=== PATIENT | male | born 1950 | race African-American/Black ===

== ENCOUNTER 2016-12-23 16:33 | Emergency (ER) | payer MEDICARE, OTHER ==
[~2016-12-23] VITALS: Ht 182.9 cm; Wt 104.0 kg
[~2016-12-23 16:33] MED LIST: BACT800T5 PO; HYDR-3533 PO; IBUP-232 PO; INSU-118; INSU-174; LOSA25TA31 PO; NOVO7030P2 SQ; NOVOLOGSS SQ
[2016-12-23 16:39] VITALS: BP 149/88; PULSE 72; RESP 16; TEMP 99.1; O2SAT 98
[2016-12-23] MEDS ORDERED: NOVO7030P2 SQ ×2 (17:40→18:25)
[2016-12-23] MEDS ORDERED: LOSA25TA PO ×2 (17:40→18:23)
--- NOTE | 2016-12-23 18:30 | PD ---
HPI Chief Complaint: Medication Refill Request Time Seen by Provider: 18:23 Travel History International Travel<30 days: No Contact w/Intl Traveler<30days: No Traveled to known affect area: No History of Present Illness HPI 66-year-old male presents to the emergency room requesting medication refills of losartan and insulin. Patient has been out of his losartan for one week and ran out of his insulin this morning. He reports occasional headache that happened when his blood pressure gets too high. He has been in the process of trying to find a primary care physician but states he is having a difficult time getting in because of availability. Patient is usually compliant with medication. PFSH Past Medical History Autoimmune Disease: No Cardiovascular Problems: Yes (HTN) COPD: Yes Diabetes: Yes Patient Takes Glucophage: No Diminished Hearing: No Endocrine: No Gastrointestinal Disorders: Yes Genitourinary: No Hypertension: Yes Immune Disorder: No Implanted Vascular Access Dvce: No Musculoskeletal: No Neurologic: No Psychiatric: No Reproductive: No Respiratory: Yes (BRONCHITIS ) Tetanus Vaccination: > 5 Years Influenza Vaccination: No Past Surgical History Surgical History: No Previous Surgery Hysterectomy: Yes (HTN) Other Surgery: No Social History Alcohol Use: No Tobacco Use: No Substance Use: No Allergies-Medications (Allergen,Severity, Reaction): Coded Allergies: Penicillin (Verified Allergy, Severe, RASH, 12/23/16) Reported Meds & Prescriptions Reported Meds & Active Scripts Active Novolin 70-30 Inj (Insulin Human Isoph/Insulin Regular) 1,000 Unit/10 Ml Vial 14 Units SQ BID 30 Days Losartan (Losartan Potassium) 25 Mg Tab 25 Mg PO DAILY Reported Losartan (Losartan Potassium) 25 Mg Tab 25 Mg PO DAILY Review of Systems Except as stated in HPI: all other systems reviewed are Neg Physical Exam Narrative GENERAL: Well-nourished, well-developed male in no acute distress. Afebrile. Ambulatory. SKIN: Warm and dry. HEAD: Normocephalic. EYES: No scleral icterus. No injection or drainage. ET: Mucosa pink and moist. No erythema or exudates. No uvular edema. No uvular, palatal, or tonsillar deviation. Airway patent. NECK: Supple, trachea midline. No JVD or lymphadenopathy. CARDIOVASCULAR: Regular rate and rhythm without murmurs, gallops, or rubs. RESPIRATORY: Breath sounds equal bilaterally. No accessory muscle use. Data Data Last Documented VS Vital Signs Date Time Temp Pulse Resp B/P Pulse Ox O2 Delivery O2 Flow Rate FiO2 12/23/16 16:39 99.1 72 16 149/88 98 MDM Medical Decision Making Medical Screen Exam Complete: Yes Emergency Medical Condition: Yes Medical Record Reviewed: Yes Differential Diagnosis Medication refill versus diabetes versus hypertension Narrative Course 66-year-old male presents to the emergency room requesting location as well as of his losartan and insulin. Ran out of losartan last week and out of insulin this morning. Patient has been compliant with medications otherwise. He has been looking for her primary care physician but been unable to find one who will accept his insurance. Denies headache, chest pain, or shortness of breath. States he has been well since taking insulin. He will be given courtesy refill is losartan and Novolin. Patient strongly encouraged to follow up with a primary care physician or return for emergent/urgent conditions. He understands and agrees to plan. Diagnosis Primary Impression: Medication refill Referrals: Primary Care Physician Patient Instructions: General Instructions, Medication Refill, ED Additional Instructions: Rest and drink plenty of fluids. Take insulin as directed. Take losartan as directed. Follow-up with a primary care physician for further management of chronic conditions. Return to the emergency room for worsening symptoms. Med/Other Pt SpecificInfo: Prescription(s) given Scripts Insulin Human Isophane-Regular 70-30 Inj (Novolin 70-30 Inj)1,000 Unit/10 Ml Vial14 Units SQ BID 30 Days Ref 0 Prov:Michele Andrade MD 12/23/16 Losartan 25 Mg Tab25 Mg PO DAILY #30 TAB Ref 0 Prov:Michele Andrade MD 12/23/16 Disposition: 01 DISCHARGE HOME Condition: Stable Tori Moser Dec 23, 2016 18:29
== END 2016-12-23 18:38 | disposition home or self-care (01) ==
LOC: PHED 16:33 → PHEFT 18:38
DX: I10 Essential (primary) hypertension (principal); E11.9 Type 2 diabetes mellitus without complications; Z79.4 Long term (current) use of insulin; Z76.0 Encounter for issue of repeat prescription
CPT/HCPCS: 99281

== ENCOUNTER 2017-02-26 18:44 | Emergency (ER) | payer MEDICARE, OTHER ==
[~2017-02-26] VITALS: Ht 182.9 cm; Wt 106.8 kg
[~2017-02-26 18:44] MED LIST changes: -BACT800T5 PO; -HYDR-3533 PO; -IBUP-232 PO; -INSU-118; -INSU-174; +LOSA25TA PO; -LOSA25TA31 PO; -NOVOLOGSS SQ
[2017-02-26 18:50] VITALS: BP 163/88; PULSE 71; RESP 18; TEMP 99; O2SAT 98
[2017-02-26] MEDS ORDERED: NOVORP2 SQ ×2 (19:09→20:37)
[2017-02-26] MEDS ORDERED: SODIUM CHLORIDE 0.9% FLUSH 10 ML FLUSH IV FLUSH PRN (19:15)
--- NOTE | 2017-02-26 19:32 | PD ---
HPI . Lower abdominal pain Chief Complaint: Abdominal Pain Time Seen by Provider: 19:02 Travel History International Travel<30 days: No Contact w/Intl Traveler<30days: No Traveled to known affect area: No History of Present Illness HPI Patient presents with lower abdominal pain which started this morning. He states that it started after breakfast. He describes an aching suprapubic pain. He reports the pain is exacerbated by urination and has been improved following a bowel movement. He states that his bowel movement earlier today was just pellets. He denies fever. He denies dysuria, frequency or urgency. He has not had any nausea or vomiting. [id number]: Lower abdomen QUALITY: Aching SEVERITY: Mild DURATION: About 12 hours TIMING: Continuous MODIFYING FACTORS: Exacerbated by urination. Relieved by bowel movement ASSOCIATED SYMPTOMS: No associated symptoms PFSH Past Medical History Autoimmune Disease: No Cardiovascular Problems: Yes (HTN) COPD: Yes Diabetes: Yes Patient Takes Glucophage: No Diminished Hearing: No Endocrine: No Gastrointestinal Disorders: Yes Genitourinary: No Hypertension: Yes Immune Disorder: No Implanted Vascular Access Dvce: No Musculoskeletal: No Neurologic: No Psychiatric: No Reproductive: No Respiratory: Yes (BRONCHITIS ) Immunizations Current: Yes Tetanus Vaccination: Unknown Influenza Vaccination: No Past Surgical History Hysterectomy: Yes (HTN) Other Surgery: No Social History Alcohol Use: No Tobacco Use: No Substance Use: No Allergies-Medications (Allergen,Severity, Reaction): Coded Allergies: Penicillin (Verified Allergy, Severe, RASH, 02/26/17) Reported Meds & Prescriptions Reported Meds & Active Scripts Active Losartan (Losartan Potassium) 25 Mg Tab 25 Mg PO DAILY Novolin R Inj (Insulin Human Regular) 1,000 Unit/10 Ml Vial 1-9 Units SQ ACHS Max dose at bedtime:( )units; sugars less than 70,(0) units; sugars 150-199,(1)unit; sugars 200-249,(3)units; sugars 250-299,(5) units; sugars 300-349,(7)units; sugars greater than 349,(9)units Novolin 70-30 Inj (Insulin Human Isoph/Insulin Regular) 1,000 Unit/10 Ml Vial 14 Units SQ BID 30 Days Review of Systems Except as stated in HPI: all other systems reviewed are Neg General / Constitutional: No: Fever, Chills Cardiovascular: No: Chest Pain or Discomfort Respiratory: No: Cough, Shortness of Breath Gastrointestinal: Positive: Abdominal Pain, Constipation, No: Nausea, Vomiting , Diarrhea Genitourinary: No: Urgency, Frequency, Dysuria Physical Exam Narrative GENERAL: Healthy-appearing man in no distress. SKIN: Warm and dry. HEAD: Atraumatic. Normocephalic. EYES: Pupils equal and round. ENT: No nasal bleeding or discharge. Mucous membranes pink and moist. NECK: Trachea midline. Neck is supple. CARDIOVASCULAR: Regular rate and rhythm. Heart sounds are normal. RESPIRATORY: No accessory muscle use. Lungs are clear with full air movement throughout. GASTROINTESTINAL: Abdomen soft, non-tender, nondistended. Bowel sounds positive. MUSCULOSKELETAL: No obvious deformities. No edema. NEUROLOGICAL: Awake and alert. No obvious cranial nerve deficits. Motor grossly within normal limits. Normal speech. PSYCHIATRIC: Appropriate mood and affect; insight and judgment normal. Data Data Last Documented VS Vital Signs Date Time Temp Pulse Resp B/P Pulse Ox O2 Delivery O2 Flow Rate FiO2 02/26/17 20:22 66 18 167/75 99 Room Air 02/26/17 18:50 99.0 Orders Complete Blood Count With Diff (02/26/17 19:02) Comprehensive Metabolic Panel (02/26/17 19:02) Urinalysis - C+S If Indicated (02/26/17 19:02) Abdomen, Flat & Upright (02/26/17 ) Iv Access Insert/Monitor (02/26/17 19:02) Sodium Chloride 0.9% Flush (Ns Flush) (02/26/17 19:15) Electrocardiogram (02/26/17 19:02) Chest, Single Ap (02/26/17 19:02) Labs Laboratory Tests Test 02/26/17 19:40 White Blood Count 8.9 TH/MM3 Red Blood Count 4.29 MIL/MM3 Hemoglobin 10.2 GM/DL Hematocrit 31.5 % Mean Corpuscular Volume 73.5 FL Mean Corpuscular Hemoglobin 23.8 PG Mean Corpuscular Hemoglobin 32.4 % Concent Red Cell Distribution Width 15.1 % Platelet Count 195 TH/MM3 Mean Platelet Volume 8.0 FL Neutrophils (%) (Auto) 70.9 % Lymphocytes (%) (Auto) 21.3 % Monocytes (%) (Auto) 6.2 % Eosinophils (%) (Auto) 1.4 % Basophils (%) (Auto) 0.2 % Neutrophils # (Auto) 6.3 TH/MM3 Lymphocytes # (Auto) 1.9 TH/MM3 Monocytes # (Auto) 0.6 TH/MM3 Eosinophils # (Auto) 0.1 TH/MM3 Basophils # (Auto) 0.0 TH/MM3 CBC Comment AUTO DIFF Differential Comment AUTO DIFF CONFIRMED Platelet Estimate NORMAL Platelet Morphology Comment NORMAL Urine Color YELLOW Urine Turbidity CLEAR Urine pH 5.5 Urine Specific [place] 1.010 Urine Protein NEG mg/dL Urine Glucose (UA) NEG mg/dL Urine Ketones NEG mg/dL Urine Occult Blood TRACE Urine Nitrite NEG Urine Bilirubin NEG Urine Leukocyte Esterase NEG Urine RBC 4-9 /hpf Urine WBC 0-2 /hpf Urine Squamous Epithelial 0-5 /hpf Cells Urine Mucus OCC /lpf Microscopic Urinalysis Comment CULT NOT INDICATED Sodium Level 145 MEQ/L Potassium Level 3.8 MEQ/L Chloride Level 110 MEQ/L Carbon Dioxide Level 25.6 MEQ/L Anion Gap 9 MEQ/L Blood Urea Nitrogen 18 MG/DL Creatinine 1.60 MG/DL Estimat Glomerular Filtration 53 ML/MIN Rate Random Glucose 89 MG/DL Calcium Level 8.3 MG/DL Total Bilirubin 0.3 MG/DL Aspartate Amino Transf 15 U/L (AST/SGOT) Alanine Aminotransferase 25 U/L (ALT/SGPT) Alkaline Phosphatase 83 U/L Total Protein 7.1 GM/DL Albumin 3.4 GM/DL [facility] Medical Decision Making Medical Screen Exam Complete: Yes Emergency Medical Condition: Yes Interpretation(s) EKG shows a sinus rhythm with no ST segment elevation or depression. Differential Diagnosis Differential diagnosis of abdominal pain includes but is not limited to gastritis, pancreatitis, hepatitis, gastroenteritis, gallbladder disease, constipation, urinary retention, UTI, peptic ulcer disease, diverticulitis or appendicitis Narrative Course Patient presents complaining with lower abdominal pain. CBC & BMP Diagram 02/26/17 19:40 LFTs are normal. UA is negative. This chest and abdominal x-rays have been independently viewed by me. Diagnosis Primary Impression: Abdominal pain Qualified Code: R10.30 - Lower abdominal pain Additional Impression: Constipation Qualified Code: K59.00 - Constipation, unspecified constipation type Patient Instructions: Constipation (DC), General Instructions Scripts Losartan 25 Mg Tab25 Mg PO DAILY #30 TAB Ref 0 Prov:Yeimi Reyes MD 02/26/17 Insulin Human Regular Inj (Novolin R Inj)1,000 Unit/10 Ml Vial1-9 Units SQ ACHS #10 ML Ref 0 Max dose at bedtime:( )units; sugars less than 70,(0) units; sugars 150-199,(1)unit; sugars 200-249,(3)units; sugars 250-299,(5) units; sugars 300-349,(7)units; sugars greater than 349,(9)units Prov:Yeimi Reyes MD 02/26/17 Insulin Human Isophane-Regular 70-30 Inj (Novolin 70-30 Inj)1,000 Unit/10 Ml Vial14 Units SQ BID 30 Days Ref 0 Prov:Yeimi Reyes MD 02/26/17 Disposition: 01 DISCHARGE HOME Condition: Stable Yeimi Reyes MD Feb 26, 2017 19:32
[2017-02-26 19:58] LABS: AUTOMATED NEUTROPHIL # 6.3 TH/MM3 (1.8-7.7); BASOPHIL % 0.2 % (0.0-2.0); EOSINOPHIL # 0.1 TH/MM3 (0-0.4); EOSINOPHIL % 1.4 % (0.0-4.0); HEMATOCRIT 31.5 % (39.0-51.0); LYMPH % 21.3 % (9.0-44.0); LYMPHOCYTE # 1.9 TH/MM3 (1.0-4.8); MEAN CELL VOLUME 73.5 FL (80.0-100.0); MEAN CORPUSCULAR HEMOGLOBIN 23.8 PG (27.0-34.0); MEAN CORPUSCULAR HGB CONC 32.4 % (32.0-36.0); MONO % 6.2 % (0.0-8.0); NEUT % 70.9 % (16.0-70.0); PLATELET COUNT 195 TH/MM3 (150-450); RED BLOOD COUNT 4.29 MIL/MM3 (4.50-5.90); RED CELL DISTRIBUTION WIDTH 15.1 % (11.6-17.2); WHITE BLOOD COUNT 8.9 TH/MM3 (4.0-11.0)
[2017-02-26 19:59] LABS: CHLORIDE 110 MEQ/L (98-107); POTASSIUM 3.8 MEQ/L (3.5-5.1); SODIUM (NA) 145 MEQ/L (136-145)
[2017-02-26 20:00] LABS: BLOOD, URINE TRACE (NEG); GLUCOSE,URINE NEG (NEG); KETONE, URINE NEG (NEG); NITRITE,URINE NEG (NEG); PH, URINE 5.5 (5.0-8.5)
[2017-02-26 20:02] LABS: ANION GAP 9 MEQ/L (5-15); BICARBONATE 25.6 MEQ/L (21.0-32.0); HEMO FLAGS AUTO DIFF
[2017-02-26 20:03] LABS: BLOOD UREA NITROGEN 18 MG/DL (7-18)
[2017-02-26 20:05] LABS: ALT (GPT) 25 U/L (12-78); AST (GOT) 15 U/L (15-37)
[2017-02-26 20:06] LABS: GLOMERULAR FILTRATION RATE 53 ML/MIN (>89)
[2017-02-26 20:07] LABS: TOTAL BILIRUBIN ADULT 0.3 MG/DL (0.2-1.0)
[2017-02-26 20:08] LABS: ALKALINE PHOSPHATASE 83 U/L (45-117)
[2017-02-26 20:11] LABS: URINE COLOR YELLOW (YELLW/STRAW)
[2017-02-26 20:12] LABS: COMMENT (UR) CULT NOT INDICATED; CULTURE IF INDICATED CULT NOT INDICATED; MUCUS URINE OCC /lpf (OCC); SQUAMOUS EPITHELIAL CELL URINE 0-5 /hpf (0-5); WBC, URINE 0-2 /hpf (0-5)
[2017-02-26 20:22] VITALS: BP 167/75; PULSE 66; RESP 18; O2SAT 99
[2017-02-26 20:28] LABS: PLATELET ESTIMATE SMEAR NORMAL (NORMAL); PLATELET MORPHOLOGY NORMAL (NORMAL); SCAN/DIFF AUTO DIFF CONFIRMED
[2017-02-26] MEDS ORDERED: LOSA25TA PO (20:37)
[2017-02-26] MEDS ORDERED: NOVO7030P2 SQ (20:37)
--- NOTE | 2017-02-26 21:16 | RADHPO ---
EXAM DATE/TIME: 02/26/2017 20:01 [facility] COMPARISON: CHEST SINGLE AP, September 13, 2016, 6:29. INDICATIONS : Chest pain. MEDICAL HISTORY : Hypertension. Diabetes mellitus type II. SURGICAL HISTORY : None. ENCOUNTER: Initial ACUITY: 1 day PAIN SCORE: 4/10 LOCATION: Bilateral chest FINDINGS: A single view of the chest demonstrates the lungs to be symmetrically aerated without evidence of mas s, infiltrate or effusion. The cardiomediastinal contours are unremarkable except mildly tortuous ao rta. Osseous structures are intact. CONCLUSION: 1. No acute findings. Chepe Mae MD on February 26, 2017 at 21:14 Board Certified Radiologist. This report was verified electronically.
--- NOTE | 2017-02-26 21:17 | RADHPO ---
EXAM DATE/TIME: 02/26/2017 20:05 [facility] COMPARISON: No previous studies available for comparison. INDICATIONS : Abdomen pain. MEDICAL HISTORY : Hypertension. Diabetes mellitus type II. SURGICAL HISTORY : None. ENCOUNTER: Initial ACUITY: 1 day PAIN SCORE: 5/10 LOCATION: Bilateral Abdomen FINDINGS: Supine and upright views of the abdomen were performed. Bowel gas pattern is nonspecific without evid ence for obstruction or free air. No acute bony abnormality. CONCLUSION: 1. No acute findings. Chepe Mae MD on February 26, 2017 at 21:14 Board Certified Radiologist. This report was verified electronically.
[2017-02-26 21:37] VITALS: BP 176/84
--- NOTE | 2017-02-27 10:36 | EKG ---
Date Performed: 02/26/2017 Time Performed: 19:40:44 PTAGE: 66 years EKG: Sinus rhythm . Normal ECG PREVIOUS TRACING : 09/13/2016 06.37 DOCTOR: Darius Grey Interpretating Date/Time 02/27/2017 10:33:42
== END 2017-02-26 21:38 | disposition home or self-care (01) ==
LOC: PHED 18:44
DX: R10.30 Lower abdominal pain, unspecified (principal); K59.00 Constipation, unspecified; E11.9 Type 2 diabetes mellitus without complications; I10 Essential (primary) hypertension; Z79.4 Long term (current) use of insulin; Z87.19 Personal history of other diseases of the digestive system; Z86.79 Personal history of other diseases of the circulatory system; Z87.09 Personal history of other diseases of the respiratory system
CPT/HCPCS: 71010; 74020; 80053; 81001; 85025; 93005

== ENCOUNTER 2017-05-09 16:24 | Emergency (ER) | payer MEDICARE, OTHER ==
[~2017-05-09] VITALS: Ht 180.3 cm; Wt 107.0 kg
[~2017-05-09 16:24] MED LIST changes: +NOVORP2 SQ
[2017-05-09 16:29] VITALS: BP 144/77; PULSE 76; RESP 16; TEMP 98.4; O2SAT 98
[2017-05-09] MEDS ORDERED: NOVO7030P2 SQ (17:16)
[2017-05-09] MEDS ORDERED: CEPH-459 PO (17:26)
--- NOTE | 2017-05-09 17:27 | PD ---
HPI Chief Complaint: Injury Time Seen by Provider: 16:50 Travel History International Travel<30 days: No Contact w/Intl Traveler<30days: No Traveled to known affect area: No History of Present Illness HPI 66-year-old male presents to emergency department for evaluation of puncture wound to right third digit by a metal wire underneath his nail today. He reports mild tenderness of the digit. He reports no possibility of foreign body as the entire wire remained intact per patient. He reports he presented for evaluation of the wound because he is a diabetic and concerned that it would get infected. He also is requesting refill of his Novolin 70/30 insulin which he takes 14 units subcutaneous twice daily. He reports he's been on this dose of medication for greater than 1 year. He has recently had insurance change and unable to find a doctor who accepts his insurance. His last refill for insulin was given here in the emergency department. He reports he checks his sugars daily. He seems knowledgeable about his condition. He reports he used the last of his insulin this morning. [facility] Past Medical History Narrative Medical Diabetes type 2, hypertension Hx Anticoagulant Therapy: No Autoimmune Disease: No Cardiovascular Problems: Yes (HTN) COPD: Yes Diabetes: Yes Patient Takes Glucophage: No Diminished Hearing: No Endocrine: No Gastrointestinal Disorders: Yes Genitourinary: No Hypertension: Yes Immune Disorder: No Implanted Vascular Access Dvce: No Musculoskeletal: No Neurologic: No Psychiatric: No Reproductive: No Respiratory: Yes (BRONCHITIS ) Immunizations Current: Yes Tetanus Vaccination: > 5 Years Influenza Vaccination: No Past Surgical History Surgical History: No Previous Surgery Hysterectomy: Yes (HTN) Other Surgery: No Social History Alcohol Use: No Tobacco Use: No Substance Use: No Allergies-Medications (Allergen,Severity, Reaction): Coded Allergies: Penicillin (Verified Allergy, Severe, RASH, 05/09/17) Reported Meds & Prescriptions Reported Meds & Active Scripts Active Keflex (Cephalexin) 250 Mg Cap 250 Mg PO Q6H Novolin 70-30 Inj (Insulin Human Isoph/Insulin Regular) 1,000 Unit/10 Ml Vial 14 Units SQ BID 30 Days Losartan (Losartan Potassium) 25 Mg Tab 25 Mg PO DAILY Review of Systems Except as stated in HPI: all other systems reviewed are Neg Physical Exam Narrative GENERAL: Alert, well-appearing male SKIN: Focused skin assessment warm/dry. HEAD: Atraumatic. Normocephalic. EYES: Pupils equal and round. No scleral icterus. No injection or drainage. ENT: No nasal bleeding or discharge. Mucous membranes pink and moist. NECK: Trachea midline. No JVD. CARDIOVASCULAR: Regular rate and rhythm. No murmur appreciated. RESPIRATORY: No accessory muscle use. Clear to auscultation. Breath sounds equal bilaterally. GASTROINTESTINAL: Abdomen soft, non-tender, nondistended. Hepatic and splenic margins not palpable. MUSCULOSKELETAL: No obvious deformities. No clubbing. No cyanosis. No edema. Right third digit: Evidence of puncture wound underneath nail bed. No foreign body seen on inspection. Small amount of blood in a linear vertical line at the site of the puncture wound under the nail bed. No subungual hematoma. NEUROLOGICAL: Awake and alert. No obvious cranial nerve deficits. Motor grossly within normal limits. Normal speech. PSYCHIATRIC: Appropriate mood and affect; insight and judgment normal. Data Data Last Documented VS Vital Signs Date Time Temp Pulse Resp B/P Pulse Ox O2 Delivery O2 Flow Rate FiO2 05/09/17 16:29 98.4 76 16 144/77 98 MDM Medical Decision Making Medical Screen Exam Complete: Yes Emergency Medical Condition: Yes Medical Record Reviewed: Yes Differential Diagnosis Puncture wound, medication refill Narrative Course 66-year-old male with history of type 2 diabetes presents emergency department for evaluation of puncture wound in the left third digit earlier today. Patient is also requesting refill of his insulin. Patient reports he takes Novolin 70/30 14 units subcutaneous twice a day. He reports he's been on this dose for greater than 1 year but has recently unable to find a doctor that takes his insurance. Patient reports he checks his sugars several times per day. According to the EMR patient was last seen here approximately 2 months ago and at that time was given a refill of his insulin. Patient is well informed of his condition his insulin will be refilled at this visit. He was given instructions for follow-up at the [facility]. Diagnosis Primary Impression: Puncture wound Additional Impression: Medication refill Referrals: [facility] Additional Instructions: Take medications as prescribed. Check your blood sugars as he normally do. Make an appointment for follow-up with the [facility] or other primary care doctor for management of your diabetes. Return to the emergency department if he develops increasing pain, swelling, redness or drainage from the site. Scripts Cephalexin (Keflex)250 Mg Euo930 Mg PO Q6H #28 CAP Prov:Mariel Reyes 05/09/17 Insulin Human Isophane-Regular 70-30 Inj (Novolin 70-30 Inj)1,000 Unit/10 Ml Vial14 Units SQ BID 30 Days Ref 0 Prov:Mariel Reyes 05/09/17 Disposition: 01 DISCHARGE HOME Condition: Stable Mariel Reyes May 09, 2017 17:27
[2017-05-09] MEDS ORDERED: TETANUS/DIPHTHERIA TOXOID ADULT 0.5 ML VIAL IM ONE (18:15)
== END 2017-05-09 18:23 | disposition home or self-care (01) ==
LOC: PHEFT 16:24
DX: S61.232A Puncture wound without foreign body of right middle finger without damage to nail, initial encounter (principal); W26.8XXA Contact with other sharp object(s), not elsewhere classified, initial encounter; Z23 Encounter for immunization
CPT/HCPCS: 90471; 90714

== ENCOUNTER 2017-07-26 15:46 | Emergency (ER) | payer MEDICARE, OTHER ==
[~2017-07-26] VITALS: Ht 182.9 cm; Wt 108.0 kg
[~2017-07-26 15:46] MED LIST changes: +CEPH-459 PO; -NOVORP2 SQ
[2017-07-26 15:59] VITALS: BP 166/78; PULSE 97; RESP 16; TEMP 99.8; O2SAT 97
--- NOTE | 2017-07-26 16:38 | PD ---
HPI Chief Complaint: Cold / Flu Symptoms Time Seen by Provider: 16:21 Travel History International Travel<30 days: No Contact w/Intl Traveler<30days: No Traveled to known affect area: No History of Present Illness HPI 66-year-old male with history of COPD presents to the emergency room for evaluation of chills, congestion, cough, sore throat, headache, and pleuritic chest pain for the past 2 days. States symptoms started off with sore throat and congestion and a half progressed into his chest. Cough is nonproductive. He has been taking [id number] Advil Cold and Flu without significant relief in symptoms. He has not actually taken his temperature. Patient has had the pneumonia vaccination but not the flu vaccination. Only history of hypertension and diabetes. Patient smoked 15 years ago but has not since. He lives in a house with smokers. PFSH Past Medical History Hx Anticoagulant Therapy: No Autoimmune Disease: No Cardiovascular Problems: Yes (HTN) COPD: Yes Diabetes: Yes Patient Takes Glucophage: No Diminished Hearing: No Endocrine: No Gastrointestinal Disorders: Yes Genitourinary: No Hypertension: Yes Immune Disorder: No Implanted Vascular Access Dvce: No Musculoskeletal: No Neurologic: No Psychiatric: No Reproductive: No Respiratory: Yes (BRONCHITIS ) Immunizations Current: Yes Tetanus Vaccination: < 5 Years Influenza Vaccination: No Past Surgical History Surgical History: No Previous Surgery Hysterectomy: Yes (HTN) Other Surgery: No Social History Alcohol Use: No Tobacco Use: No Substance Use: No Allergies-Medications (Allergen,Severity, Reaction): Coded Allergies: penicillin G (Unverified Allergy, Severe, Hives, 07/26/17) Reported Meds & Prescriptions Reported Meds & Active Scripts Active Ventolin Hfa 18 GM Inh (Albuterol Sulfate) 90 Mcg/Act Aer 2 Puff INH Q6H PRN Tessalon Perles (Benzonatate) 100 Mg Cap 100 Mg PO TID PRN Azithromycin 250 Mg Tab 250 Mg PO DIRECTED Take 2 tabs (500 mg) on day 1 then 1 tab daily x 4 days. Novolin 70-30 Inj (Insulin Human Isoph/Insulin Regular) 1,000 Unit/10 Ml Vial 14 Units SQ BID 30 Days Losartan (Losartan Potassium) 25 Mg Tab 25 Mg PO DAILY Review of Systems Except as stated in HPI: all other systems reviewed are Neg Physical Exam Narrative GENERAL: Well-nourished, well-developed patient. SKIN: Focused skin assessment warm/dry. HEAD: Normocephalic. EYES: No scleral icterus. No injection or drainage. ENT: Mucosa pink and moist. Mild erythema without edema or exudates. No uvular edema. No uvular, palatal, or tonsillar deviation. Airway patent. Nasal turbinates appear normal without nasal blood, purulent drainage or septal hematoma. EARS: Bilateral pinnae and external canals appear within normal limits. Bilateral tympanic membranes without erythema, dullness or perforation. NECK: Supple, trachea midline. No JVD or lymphadenopathy. CARDIOVASCULAR: Regular rate and rhythm without murmurs, gallops, or rubs. RESPIRATORY: Breath sounds equal bilaterally. No accessory muscle use. Bilateral wheezing and rhonchi. No obvious crackles. Data Data Last Documented VS Vital Signs Date Time Temp Pulse Resp B/P (MAP) Pulse Ox O2 Delivery O2 Flow Rate FiO2 07/26/17 16:15 16 97 Room Air 07/26/17 15:59 99.8 97 166/78 (107) Orders Orders Chest, Pa & Lat (07/26/17 ) Influenzae A/B Antigen (07/26/17 16:27) MDM Medical Decision Making Medical Screen Exam Complete: Yes Emergency Medical Condition: Yes Medical Record Reviewed: Yes Differential Diagnosis Upper respiratory infection, pneumonia, bronchitis Narrative Course 66-year-old male presents to the emergency room for evaluation of cough and flu symptoms for the past 2 days. Patient is afebrile and well-appearing in the emergency room. Coughing on occasion. Cough is nonproductive. Lungs sounds revealed bilateral wheezing and rhonchi, right worse than left. There is mild nasal congestion. Throat is mildly erythematous. Rapid influenza is negative. Chest x-ray shows no acute abnormality. This is likely bronchitis. Patient discharged with prescriptions for azithromycin, albuterol inhaler, and Tessalon Perles. Follow up with his primary care physician or return to the emergency room for worsening symptoms. He understands and agrees to plan. Diagnosis Primary Impression: Acute bronchitis Qualified Codes: J20.9 - Acute bronchitis, unspecified Referrals: Primary Care Physician Additional Instructions: Rest and drink plenty of fluids. Take azithromycin as directed, until gone. Use albuterol inhaler as directed, as needed for wheezing. Return to the emergency room in 2 days to have packing removed. If it falls out before, this is okay. Follow up with a primary care physician. Return to emergency room for worsening symptoms, as discussed. Med/Other Pt SpecificInfo: Prescription(s) given Scripts Albuterol 18 GM Inh (Ventolin Hfa 18 GM Inh) 90 Mcg/Act Aer 2 PUFF INH Q6H Y for SHORTNESS OF BREATH, #1 INHALER 0 Refills Prov: Yeimi Reyes MD 07/26/17 Benzonatate (Tessalon Perles) 100 Mg Cap 100 MG PO TID Y for COUGH, #15 CAP 0 Refills Prov: Yeimi Reyes MD 07/26/17 Azithromycin (Azithromycin) 250 Mg Tab 250 MG PO DIRECTED for Infection, #6 TAB 0 Refills Take 2 tabs (500 mg) on day 1 then 1 tab daily x 4 days. Prov: Yeimi Reyes MD 07/26/17 Disposition: 01 DISCHARGE HOME Condition: Stable Tori Moser Jul 26, 2017 16:38
--- NOTE | 2017-07-26 16:55 | RADRPT ---
EXAM DATE/TIME: 07/26/2017 16:31 [facility] COMPARISON: CHEST PA & LAT, September 13, 2015, 8:16. INDICATIONS : Productive cough and congestion. MEDICAL HISTORY : Chronic obstructive pulmonary disease. Hypertension Diabetes mellitus type II. SURGICAL HISTORY : None. ENCOUNTER: Initial ACUITY: 3 days PAIN SCORE: 2/10 LOCATION: Bilateral chest FINDINGS: PA and lateral views of the chest demonstrate the lungs to be symmetrically aerated without evidence of mass, infiltrate or effusion. The cardiomediastinal contours are unremarkable. Osseous structure s are intact. CONCLUSION: No acute disease. Donald Kimble MD FACR on July 26, 2017 at 16:53 Board Certified Radiologist. This report was verified electronically.
[2017-07-26] MEDS ORDERED: BENZ100 PO (17:02)
[2017-07-26] MEDS ORDERED: AZIT250T3 PO (17:02)
[2017-07-26] MEDS ORDERED: VENTAER INH (17:02)
== END 2017-07-26 17:29 | disposition home or self-care (01) ==
LOC: PHEFT 15:46
DX: J20.9 Acute bronchitis, unspecified (principal); E11.9 Type 2 diabetes mellitus without complications; I10 Essential (primary) hypertension; J44.0 Chronic obstructive pulmonary disease with (acute) lower respiratory infection; Z88.0 Allergy status to penicillin
CPT/HCPCS: 71020; 87804; 99284

== ENCOUNTER 2017-08-02 23:06 | Emergency (ER) | payer MEDICARE, OTHER ==
[~2017-08-02] VITALS: Ht 182.9 cm; Wt 106.5 kg
[~2017-08-02 23:06] MED LIST changes: +AZIT250T3 PO; +BENZ100 PO; -CEPH-459 PO; +VENTAER INH
[2017-08-02 23:20] VITALS: BP 193/90; PULSE 80; RESP 18; TEMP 98.9; O2SAT 98
--- NOTE | 2017-08-02 23:34 | PD ---
HPI Chief Complaint: Respiratory Symptoms Time Seen by Provider: 23:24 Travel History International Travel<30 days: No Contact w/Intl Traveler<30days: No History of Present Illness HPI Patient 66-year-old male presents emergency department for evaluation of cough congestion for the past 10 days. Patient states he was here a week ago and diagnosed bronchitis and then ran out of his Tessalon and then the symptoms return. He is a nonsmoker but his is fairly heavy smoker. Denies any fever denies any sputum production, states he feels something rattling around his chest. Review the records show that indeed he was here a few days ago diagnosed bronchitis sent home on albuterol and Tessalon. He still has albuterol inhaler states this helps significantly. PFSH Past Medical History Hx Anticoagulant Therapy: No Autoimmune Disease: No Cardiovascular Problems: Yes (HTN) COPD: Yes Diabetes: Yes Diminished Hearing: No Endocrine: No Gastrointestinal Disorders: Yes Genitourinary: No Hypertension: Yes Immune Disorder: No Implanted Vascular Access Dvce: No Musculoskeletal: No Neurologic: No Psychiatric: No Reproductive: No Respiratory: Yes (BRONCHITIS ) Immunizations Current: Yes Past Surgical History Hysterectomy: Yes (HTN) Other Surgery: No Social History Alcohol Use: No Tobacco Use: No Substance Use: No Allergies-Medications (Allergen,Severity, Reaction): Coded Allergies: penicillin G (Verified Allergy, Severe, Hives, 08/02/17) Reported Meds & Prescriptions Reported Meds & Active Scripts Active Ventolin Hfa 18 GM Inh (Albuterol Sulfate) 90 Mcg/Act Aer 2 Puff INH Q6H PRN Novolin 70-30 Inj (Insulin Human Isoph/Insulin Regular) 1,000 Unit/10 Ml Vial 14 Units SQ BID 30 Days Losartan (Losartan Potassium) 25 Mg Tab 25 Mg PO DAILY Review of Systems Except as stated in HPI: all other systems reviewed are Neg Physical Exam Narrative GENERAL: Well-developed well-nourished no obvious distress SKIN: Focused skin assessment warm/dry. HEAD: Atraumatic. Normocephalic. EYES: Pupils equal and round. No scleral icterus. No injection or drainage. ENT: No nasal bleeding or discharge. Mucous membranes pink and moist. NECK: Trachea midline. No JVD. CARDIOVASCULAR: Regular rate and rhythm. No murmur appreciated. RESPIRATORY: No accessory muscle use. Normal work of breathing, diffuse mild rhonchi and wheezing. No rales. good air entry bilaterally. GASTROINTESTINAL: Abdomen soft, non-tender, nondistended. Hepatic and splenic margins not palpable. MUSCULOSKELETAL: No obvious deformities. No clubbing. No cyanosis. No edema. NEUROLOGICAL: Awake and alert. No obvious cranial nerve deficits. Motor grossly within normal limits. Normal speech. PSYCHIATRIC: Appropriate mood and affect; insight and judgment normal. Data Data Last Documented VS Vital Signs Date Time Temp Pulse Resp B/P (MAP) Pulse Ox O2 Delivery O2 Flow Rate FiO2 08/03/17 00:40 77 18 189/89 (122) 97 08/02/17 23:47 Room Air 08/02/17 23:20 98.9 Orders Orders Chest, Pa & Lat (08/02/17 ) Albuterol-Ipratropium Neb (Duoneb Neb) (08/02/17 23:45) Benzonatate (Tessalon) (08/03/17 00:00) MDM Medical Decision Making Medical Screen Exam Complete: Yes Emergency Medical Condition: Yes Differential Diagnosis Bronchitis, pneumonia, URI. Narrative Course patient 66-year-old male presents emergency department for second evaluation this week for bronchitis. He states that he ran out of his Tessalon and since then his symptoms come back. He is also finished the antibiotic that he was written for. Does have some rhonchorous breath sounds. Chest x-ray negative. He is diabetic and I think the risk of steroids outweighs the benefits. At this point will be discharged with albuterol and Tessalon to follow-up with primary care physician. Diagnosis Primary Impression: Bronchitis Med/Other Pt SpecificInfo: Prescription(s) given Scripts Albuterol 18 GM Inh (Ventolin Hfa 18 GM Inh) 90 Mcg/Act Aer 2 PUFF INH Q6H Y for SHORTNESS OF BREATH, #1 INHALER 1 Refill Prov: Dave Molina MD 08/02/17 Disposition: 01 DISCHARGE HOME Condition: Stable Dave Molina MD Aug 02, 2017 23:34
[2017-08-02] MEDS ORDERED: RESP: ALBUTEROL 2.5 MG/IPRATROPIUM 0.5 MG NEB (SCH) NEB ONE (23:45)
[2017-08-02] MEDS ORDERED: VENTAER INH (23:52)
[2017-08-02] MEDS ORDERED: BENZ100 PO (23:52)
[2017-08-03] MEDS ORDERED: BENZONATATE 100 MG CAP PO ONE
--- NOTE | 2017-08-03 00:02 | RADRPT ---
EXAM DATE/TIME: 08/02/2017 23:44 [facility] COMPARISON: CHEST PA & LAT, July 26, 2017, 16:31. INDICATIONS : Cough, wheezing, tightness in chest for 1 week MEDICAL HISTORY : Chronic obstructive pulmonary disease. Hypertension Diabetes mellitus type 2 SURGICAL HISTORY : None. ENCOUNTER: Initial ACUITY: 1 week PAIN SCORE: 0/10 LOCATION: Bilateral chest FINDINGS: PA and lateral views of the chest demonstrate the lungs to be symmetrically aerated without evidence of mass, infiltrate or effusion. The cardiomediastinal contours are unremarkable. Osseous structure s are intact. CONCLUSION: 1. No acute cardiopulmonary disease. Dayne Mcclellan MD on August 03, 2017 at 0:00 Board Certified Radiologist. This report was verified electronically.
[2017-08-03 00:40] VITALS: BP 189/89
== END 2017-08-03 00:41 | disposition home or self-care (01) ==
LOC: PHED 23:06
DX: J40 Bronchitis, not specified as acute or chronic (principal); J44.9 Chronic obstructive pulmonary disease, unspecified; Z88.0 Allergy status to penicillin; Z77.22 Contact with and (suspected) exposure to environmental tobacco smoke (acute) (chronic)
CPT/HCPCS: 71020; 94664; 99283

== ENCOUNTER 2018-01-09 20:58 | Emergency (ER) | payer OTHER ==
[~2018-01-09] VITALS: Ht 182.9 cm; Wt 114.0 kg
[2018-01-09] VITALS (7 sets, daily range): BP systolic 163–201; BP diastolic 72–86; PULSE 81–90; RESP 16–18; TEMP 101.2; O2SAT 94–96
[~2018-01-09 20:58] MED LIST changes: -AZIT250T3 PO; -BENZ100 PO
[2018-01-09] MEDS ORDERED: LOSA50TA PO (22:22)
[2018-01-09] MEDS ORDERED: methylPREDNISolone SOD SUCC 125 MG/2 ML VIAL IV PUSH ONE (22:45)
--- NOTE | 2018-01-09 22:48 | PD ---
HPI Chief Complaint: Respiratory Symptoms Time Seen by Provider: 22:36 Travel History International Travel<30 days: No Contact w/Intl Traveler<30days: No Traveled to known affect area: No History of Present Illness HPI 67yo M with PMH of COPD, DM, HTN presents to the ED with c/o sob for 2 days. Pt has midsternal chest pain that is sharp and worst with coughing and deep breathing. Nonradiating. Associated symptoms include generalized weakness, cough, nasal congestion and fever. Said he also gained 30 pounds in 6 months. Said he does not go to the doctor and gets his medication from the pharmacy directly. Denies any n/v, abdominal pain, focal weakness or numbness. Pt ran out of his COPD medications. PFSH Past Medical History Hx Anticoagulant Therapy: No Autoimmune Disease: No Cardiovascular Problems: Yes (HTN) COPD: Yes Diabetes: Yes Patient Takes Glucophage: No Diminished Hearing: No Endocrine: No Gastrointestinal Disorders: Yes Genitourinary: No Hypertension: Yes Immune Disorder: No Implanted Vascular Access Dvce: No Musculoskeletal: No Neurologic: No Psychiatric: No Reproductive: No Respiratory: Yes (COPD) Immunizations Current: Yes Influenza Vaccination: Yes ?: Not Past Surgical History Surgical History: No Previous Surgery Hysterectomy: Yes (HTN) Other Surgery: No Social History Alcohol Use: No Tobacco Use: No (QUIT 2006) Substance Use: No Allergies-Medications (Allergen,Severity, Reaction): Coded Allergies: penicillin G (Verified Allergy, Severe, Hives, 01/09/18) Reported Meds & Prescriptions Reported Meds & Active Scripts Active Novolin 70-30 Inj (Insulin Human Isoph/Insulin Regular) 1,000 Unit/10 Ml Vial 14 Units SQ BID 30 Days Reported Losartan (Losartan Potassium) 50 Mg Tab 50 Mg PO DAILY Review of Systems Except as stated in HPI: all other systems reviewed are Neg Physical Exam Narrative GENERAL: 67yo M in mild distress. SKIN: Focused skin assessment warm/dry. HEAD: Atraumatic. Normocephalic. EYES: Pupils equal and round. No scleral icterus. No injection or drainage. ENT: Throat: Clear. Uvula midline. NECK: Trachea midline. No JVD. CARDIOVASCULAR: Regular rate and rhythm. No murmur appreciated. RESPIRATORY: No accessory muscle use. Expiratory wheezing right upper and lower lungs. GASTROINTESTINAL: Abdomen soft, non-tender, nondistended. MUSCULOSKELETAL: No obvious deformities. No clubbing. No cyanosis. +Bilateral lower extremity edema. NEUROLOGICAL: Awake and alert. No obvious cranial nerve deficits. Motor grossly within normal limits. Normal speech. PSYCHIATRIC: Appropriate mood and affect; insight and judgment normal. Data Data Last Documented VS Vital Signs Date Time Temp Pulse Resp B/P (MAP) Pulse Ox O2 Delivery O2 Flow Rate FiO2 01/09/18 23:47 88 16 181/73 (109) 94 Room Air 01/09/18 21:09 101.2 Orders Orders Blood Culture (01/09/18 22:42) Complete Blood Count With Diff (01/09/18 22:42) Basic Metabolic Panel (Bmp) (01/09/18 22:42) B-Type Natriuretic Peptide (01/09/18 22:42) Act Partial Throm Time (Ptt) (01/09/18 22:42) Prothrombin Time / Inr (Pt) (01/09/18 22:42) Magnesium (Mg) (01/09/18 22:42) Troponin I (01/09/18 22:42) Influenzae A/B Antigen (01/09/18 22:42) Electrocardiogram (01/09/18 22:42) Chest, Single Ap (01/09/18 22:42) Methylprednisolone So Succ Inj (Solumedr (01/09/18 22:45) Albuterol-Ipratropium Neb (Duoneb Neb) (01/09/18 22:45) Nitroglycerin Sl (Nitrostat Sl) (01/09/18 22:45) Acetaminophen (Tylenol) (01/10/18 00:00) Labs Laboratory Tests Test 01/09/18 23:13 White Blood Count 7.7 TH/MM3 Red Blood Count 4.11 MIL/MM3 Hemoglobin 10.7 GM/DL Hematocrit 30.7 % Mean Corpuscular Volume 74.7 FL Mean Corpuscular Hemoglobin 26.0 PG Mean Corpuscular Hemoglobin Concent 34.8 % Red Cell Distribution Width 14.4 % Platelet Count 167 TH/MM3 Mean Platelet Volume 8.1 FL Neutrophils (%) (Auto) 79.8 % Lymphocytes (%) (Auto) 9.8 % Monocytes (%) (Auto) 8.7 % Eosinophils (%) (Auto) 1.5 % Basophils (%) (Auto) 0.2 % Neutrophils # (Auto) 6.1 TH/MM3 Lymphocytes # (Auto) 0.8 TH/MM3 Monocytes # (Auto) 0.7 TH/MM3 Eosinophils # (Auto) 0.1 TH/MM3 Basophils # (Auto) 0.0 TH/MM3 CBC Comment DIFF FINAL Differential Comment Prothrombin Time 10.7 SEC Prothromb Time International Ratio 1.1 RATIO Activated Partial Thromboplast Time 24.5 SEC Blood Urea Nitrogen 15 MG/DL Creatinine 1.30 MG/DL Random Glucose 90 MG/DL Calcium Level 8.2 MG/DL Magnesium Level 2.0 MG/DL Sodium Level 140 MEQ/L Potassium Level 3.9 MEQ/L Chloride Level 106 MEQ/L Carbon Dioxide Level 28.0 MEQ/L Anion Gap 6 MEQ/L Estimat Glomerular Filtration Rate 67 ML/MIN Troponin I LESS THAN 0.02 NG/ML B-Type Natriuretic Peptide 11 PG/ML [facility] Medical Decision Making Medical Screen Exam Complete: Yes Emergency Medical Condition: Yes Interpretation(s) EKG: NSR 84bpm. LAD. 1mm ST elevation in V2. No ST depression. Differential Diagnosis COPD exacerbation vs. New onset CHF vs. Pneumonia vs. influenza vs. ACS Narrative Course 67yo M with flu like symptoms who is wheezing on exam. Pt given duonebs x3 and methylprednisolone 125mg IV. Pt reevaluated at bedside and feels much better. No more wheezing. Denies any chest pain and chest pain is only during cough and deep inspiration. Do not think it is cardiac. Labs reviewed, no leukocytosis. H/H low but at baseline. Glucose 90. Troponin negative. BNP 11. CXR showed no acute disease. Influenza negative. Pt is saturating at 94- 96% on RA and wants to go home. Return precautions given. Diagnosis Primary Impression: COPD exacerbation Patient Instructions: General Instructions Departure Forms: Tests/Procedures Additional Instructions: Please follow up with your primary care physician in 1-2 days. Return to the ED if symptoms worsen. Med/Other Pt SpecificInfo: Prescription(s) given Scripts Acetaminophen (Tylenol) 325 Mg Tab 650 MG PO Q6H Y for FEVER, #20 TAB 0 Refills Prov: Alma Drake DO 01/10/18 Albuterol 18 GM Inh (Ventolin Hfa 18 GM Inh) 90 Mcg/Act Aer 2 PUFF INH Q4H Y for SHORTNESS OF BREATH, #1 INHALER 0 Refills Prov: Alma Drake DO 01/10/18 Prednisone (Deltasone) 20 Mg Tab 20 MG PO BID for 5 Days, #10 TAB 0 Refills Prov: Alma Drake DO 01/10/18 Alma Drake DO Jan 09, 2018 22:48
--- NOTE | 2018-01-09 23:09 | RADRPT ---
EXAM DATE/TIME: 01/09/2018 22:53 [facility] COMPARISON: CHEST SINGLE AP, February 26, 2017, 20:01. INDICATIONS : Cough and short of breath for 4 days. MEDICAL HISTORY : Chronic obstructive pulmonary disease. Hypertension Diabetes mellitus type II. SURGICAL HISTORY : None. ENCOUNTER: Initial ACUITY: 4 - 6 days PAIN SCORE: 0/10 LOCATION: Bilateral chest FINDINGS: Mild hyperinflation and cardiomegaly. Lungs are clear. No consolidation or effusion. Osseous structur es are intact. CONCLUSION: No acute disease. Matt White MD on January 09, 2018 at 23:06 Board Certified Radiologist. This report was verified electronically.
[2018-01-09] MEDS: NITROGLYCERIN 0.4 MG SL 25 TABS/BTL SL PRN ×2 (23:18→23:28)
[2018-01-09] MEDS: RESP: ALBUTEROL 2.5 MG/IPRATROPIUM 0.5 MG NEB (SCH) INH ×2 (23:38→23:39)
[2018-01-09 23:46] LABS: AUTOMATED NEUTROPHIL # 6.1 TH/MM3 (1.8-7.7); BASOPHIL % 0.2 % (0.0-2.0); EOSINOPHIL # 0.1 TH/MM3 (0-0.4); EOSINOPHIL % 1.5 % (0.0-4.0); HEMATOCRIT 30.7 % (39.0-51.0); HEMOGLOBIN 10.7 GM/DL (13.0-17.0); LYMPH % 9.8 % (9.0-44.0); LYMPHOCYTE # 0.8 TH/MM3 (1.0-4.8); MEAN CELL VOLUME 74.7 FL (80.0-100.0); MEAN CORPUSCULAR HGB CONC 34.8 % (32.0-36.0); MEAN PLATELET VOLUME 8.1 FL (7.0-11.0); MONO % 8.7 % (0.0-8.0); MONOCYTE # 0.7 TH/MM3 (0-0.9); NEUT % 79.8 % (16.0-70.0); PLATELET COUNT 167 TH/MM3 (150-450); RED BLOOD COUNT 4.11 MIL/MM3 (4.50-5.90); RED CELL DISTRIBUTION WIDTH 14.4 % (11.6-17.2); WHITE BLOOD COUNT 7.7 TH/MM3 (4.0-11.0)
[2018-01-09 23:52] LABS: CHLORIDE 106 MEQ/L (98-107); SODIUM (NA) 140 MEQ/L (136-145)
[2018-01-09 23:55] LABS: BLOOD UREA NITROGEN 15 MG/DL (7-18); CALCIUM 8.2 MG/DL (8.5-10.1); GLUCOSE,RANDOM 90 MG/DL (74-106)
[2018-01-09 23:58] LABS: GLOMERULAR FILTRATION RATE 67 ML/MIN (>89); INTERNATIONAL NORMALIZED RATIO 1.1 RATIO; PROTHROMBIN TIME - PATIENT 10.7 SEC (9.8-11.6)
[2018-01-10] MEDS ORDERED: ACETAMINOPHEN 325 MG TAB PO ONE
[2018-01-10 00:03] LABS: TROPONIN I LESS THAN 0.02 NG/ML (0.02-0.05)
[2018-01-10] MEDS: NITROGLYCERIN 0.4 MG SL 25 TABS/BTL SL PRN (00:21)
[2018-01-10] MEDS ORDERED: PRED-503 PO (01:58)
[2018-01-10] MEDS ORDERED: VENTAER INH (01:58)
[2018-01-10] MEDS ORDERED: TYLE325T PO (01:58)
[2018-01-10 02:00] VITALS: BP 165/71; PULSE 90; RESP 16; TEMP 100; O2SAT 95
--- NOTE | 2018-01-10 21:25 | EKG ---
Date Performed: 01/09/2018 Time Performed: 22:51:07 PTAGE: 67 years EKG: Sinus rhythm NONSPECIFIC T-WAVE ABNORMALITY BORDERLINE ECG PREVIOUS TRACING : 02/26/2017 19.40 Since the prior tracing, there has been no significant rasmussen DOCTOR: Willam Trujillo Interpretating Date/Time 01/10/2018 21:22:54
== END 2018-01-10 02:15 | disposition home or self-care (01) ==
LOC: PHED 20:58
DX: J44.1 Chronic obstructive pulmonary disease with (acute) exacerbation (principal); R94.31 Abnormal electrocardiogram [ECG] [EKG]; I10 Essential (primary) hypertension; E11.9 Type 2 diabetes mellitus without complications; Z88.0 Allergy status to penicillin; Z79.4 Long term (current) use of insulin; Z87.891 Personal history of nicotine dependence
CPT/HCPCS: 71045; 80048; 83735; 83880; 84484; 85025; 85610; 85730; 87040; 87804; 93005; 94640; 94664; 96374; 99285; J2930

== ENCOUNTER 2018-04-10 11:32 | Emergency (ER) | payer MEDICARE ==
[~2018-04-10 11:32] MED LIST changes: -LOSA25TA PO; +LOSA50TA PO; +PRED-503 PO; +TYLE325T PO
[2018-04-10 11:36] VITALS: BP 165/76; PULSE 80; RESP 16; TEMP 99.4; O2SAT 97
--- NOTE | 2018-04-10 11:58 | PD ---
HPI Chief Complaint: Cold / Flu Symptoms Time Seen by Provider: 11:45 Travel History International Travel<30 days: No Contact w/Intl Traveler<30days: No Traveled to known affect area: No History of Present Illness HPI 67-year-old male with history of diabetes mellitus, COPD, hypertension presents emergency department complaining of cough and congestion started yesterday. Since yesterday his cough had productive clear sputum and today it developed to a greenish sputum. Patient has a history of bronchitis and is concerned that this will worsen if he is not treated. Currently he says that many because he feels a pressure in his head but denies headache. Patient states that he feels mildly short of breath as well. Says he has been using his inhalers which include albuterol. Denies fevers or chills. Denies nausea vomiting diarrhea. He has no other complaints today. Says he has not followed up with his primary care physician regarding his condition today. PFSH Past Medical History Hx Anticoagulant Therapy: No Autoimmune Disease: No Cardiovascular Problems: Yes (HTN) COPD: Yes Diabetes: Yes (INSULIN) Patient Takes Glucophage: No Diminished Hearing: No Endocrine: No Gastrointestinal Disorders: Yes Genitourinary: No Hypertension: Yes Immune Disorder: No Implanted Vascular Access Dvce: No Musculoskeletal: No Neurologic: No Psychiatric: No Reproductive: No Respiratory: Yes (COPD) Immunizations Current: Yes Past Surgical History Hysterectomy: Yes (HTN) Other Surgery: No Social History Alcohol Use: No Tobacco Use: No (QUIT 2006) Substance Use: No Allergies-Medications (Allergen,Severity, Reaction): Coded Allergies: penicillin G (Verified Allergy, Severe, Hives, 04/10/18) Reported Meds & Prescriptions Reported Meds & Active Scripts Active Tessalon Perles (Benzonatate) 100 Mg Cap 100 Mg PO TID PRN 3 Days Azithromycin 250 Mg Tab 250 Mg PO DIRECTED Take 2 tabs (500 mg) on day 1 then 1 tab daily x 4 days. Medrol Dosepak (Methylprednisolone) 4 Mg Dspk 4 Mg PO DIRECTED Per Pharmacist direction Novolin 70-30 Inj (Insulin Human Isoph/Insulin Regular) 1,000 Unit/10 Ml Vial 14 Units SQ BID 30 Days Reported Losartan (Losartan Potassium) 50 Mg Tab 50 Mg PO DAILY Review of Systems Except as stated in HPI: all other systems reviewed are Neg Physical Exam Narrative GENERAL: Well-developed well-nourished in no apparent distress SKIN: Focused skin assessment warm/dry. HEAD: Atraumatic. Normocephalic. EYES: Pupils equal and round. No scleral icterus. No injection or drainage. No tenderness palpation of the sinuses ENT: No nasal bleeding or discharge. Mucous membranes pink and moist. NECK: Trachea midline. No JVD. No lymphadenopathy CARDIOVASCULAR: Regular rate and rhythm. No murmur appreciated. RESPIRATORY: No accessory muscle use. Clear to auscultation. Breath sounds equal bilaterally. No wheezes, rales or rhonchi GASTROINTESTINAL: Abdomen soft, non-tender, nondistended. Hepatic and splenic margins not palpable. MUSCULOSKELETAL: No obvious deformities. No clubbing. No cyanosis. No edema. Bilateral Homans sign negative NEUROLOGICAL: Awake and alert. No obvious cranial nerve deficits. Motor grossly within normal limits. Normal speech. PSYCHIATRIC: Appropriate mood and affect; insight and judgment normal. Data Data Last Documented VS Vital Signs Date Time Temp Pulse Resp B/P (MAP) Pulse Ox O2 Delivery O2 Flow Rate FiO2 04/10/18 11:36 99.4 80 16 165/76 (105) 97 Orders Orders Prednisone (Deltasone) (04/10/18 12:00) Ed Discharge Order (04/10/18 12:13) MDM Medical Decision Making Medical Screen Exam Complete: Yes Emergency Medical Condition: Yes Differential Diagnosis COPD exacerbation, upper respiratory infection, influenza, acute bronchitis Narrative Course 67-year-old male with history of diabetes mellitus, COPD, hypertension presents emergency department complaining of cough and congestion started yesterday. Since yesterday his cough had a productive sputum with clear sputum and today's development to a greenish colored. Patient has a history of bronchitis and is concerned that this will worsen if he is not treated. Currently he says that many because he feels a pressure in his head but denies headache. Patient states that he feels mildly short of breath as well. Denies fevers or chills. Denies nausea vomiting diarrhea. He has no other complaints today. Says he has not followed up with his primary care physician regarding his condition today. Vital signs are stable. The exam findings are essentially unremarkable except for an occasional cough. No wheezes, rales or rhonchi. Prednisone 20 mg administered emergency department. Patient be discharged with prednisone and Tessalon Perles. Azithromycin if his symptoms persist or worsen. He is advised to follow-up with his primary care physician as soon as possible. Advised to follow-up with his primary care physician for similar symptoms in the future. Diagnosis Primary Impression: COPD exacerbation Referrals: Youth Worker Additional Instructions: DO NOT start the antibiotic unless your symptoms worsen over the next 2 days. FOLLOW UP with your primary care physician within 2-3 days for further evaluation. You may need further workup and evaluation by a electrolytic de scaler for your frequent exacerbations. You may use a drop of honey and lemon in a cup of warm water to soothe your cough. (If you are greater than 1 year old ) Ensure good hydration and a nutritious diet. Note that viral infection symptoms may last for several weeks if you have a viral illness. Return to the ED for worsening or persistent symptoms. Scripts Benzonatate (Tessalon Perles) 100 Mg Cap 100 MG PO TID Y for COUGH for 3 Days, CAP 0 Refills Prov: Julio Hunter MD 04/10/18 Azithromycin (Azithromycin) 250 Mg Tab 250 MG PO DIRECTED for Infection, #6 TAB 0 Refills Take 2 tabs (500 mg) on day 1 then 1 tab daily x 4 days. Prov: Julio Hunter MD 04/10/18 Methylprednisolone Dosepak (Medrol Dosepak) 4 Mg Dspk 4 MG PO DIRECTED, #1 DSPK 0 Refills Per Pharmacist direction Prov: Julio Hunter MD 04/10/18 Disposition: 01 DISCHARGE HOME Condition: Stable Azeb Chaidez April 10, 2018 11:58
[2018-04-10] MEDS ORDERED: predniSONE 20 MG TAB PO ONE (12:00)
[2018-04-10] MEDS ORDERED: MEDR4PAK PO (12:13)
[2018-04-10] MEDS ORDERED: BENZ100 PO (12:13)
[2018-04-10] MEDS ORDERED: AZIT250T3 PO (12:13)
== END 2018-04-10 12:39 | disposition home or self-care (01) ==
LOC: PHEFT 11:32
DX: J44.1 Chronic obstructive pulmonary disease with (acute) exacerbation (principal); E11.9 Type 2 diabetes mellitus without complications; I10 Essential (primary) hypertension; Z87.891 Personal history of nicotine dependence
CPT/HCPCS: 99283; J7512